=== PATIENT | female | born 1970 | race Caucasian/White ===

== ENCOUNTER 2020-03-08 13:50 | Inpatient (IN) ==
[2020-03-08] MEDS ORDERED: OPTIRAY 320 125ml IV PRN (14:01)
--- NOTE | 2020-03-08 14:03 | CT Scan Report ---
CT head/brain wo con CT DOSE: 614.27 mGy.cm HISTORY: Stroke Alert TECHNIQUE: Multiaxial CT images of the head were performed without the use of intravenous contrast. A dose lowering technique was utilized adhering to the principles of ALARA. Comparison: None. Findings: The paranasal sinuses and mastoid air cells are clear. The calvarium and skull base are int act. The ventricles and sulci are within normal limits. There is no mass, hematoma, midline shift, or acute infarct. Impression: No acute intracranial abnormality. ACT 112: Negative or not required by law. The above report was generated using voice recognition software. It may contain grammatical, syntax or spelling errors. Electronically signed by: Terrance Flood M.D. 03/08/2020 2:01 PM
--- NOTE | 2020-03-08 14:14 | Emergency Department Note ---
Impression & Plan Central retinal artery occlusion of right eye, Cerebrovascular accident, HTN (hypertension) ED Provider Note NAME: NATALIYA CONNOLLY AGE: 50 SEX: F : 1970 ARRIVES VIA: Walk-In INFORMANT: Patient ED PROVIDER(S): David Malik DO CHIEF COMPLAINT: Loss of vision in right eye HPI: Patient is a 50-year-old female who presents the ER for kaleidoscope vision in her right eye which started about 1 AM this morning. Patient notes that around 9 AM-10am patient completely lost vision in her right eye. She notes that she can see some faint white light in her peripheral vision of her right eye. She denies any headaches, chest pain, shortness of breath, nausea, vo miting or diarrhea. She notes that she went to the kiln cleaner office who noticed a right central artery occlusion. Patient was referred in here for further work-up. No other exacerbating or remitting factors. ROS: See above HPI for pertinent positives & negatives. A total of 10 systems reviewed and were otherwise negative. PAST MEDICAL HISTORY:See Below PAST SURGICAL HISTORY:See Below FAMILY HISTORY:See Below SOCIAL HISTORY:See Below HOME MEDICATIONS:See Below ALLERGIES:See Below VITALS:See Below PHYSICAL EXAMINATION: GENERAL: Sitting up in bed, alert, well appearing, well nourished, no distress, non-toxic EYE EXAM: normal conjunctiva. OROPHARYNX: no exudate, no erythema, lips, buccal mucosa, and tongue normal and mucous membranes are moist NECK: supple, no nuchal rigidity, no adenopathy, non-tender LUNGS: Clear to auscultation. Normal chest wall mechanics HEART: no murmurs, S1 normal and S2 normal ABDOMEN: abdomen soft, non-tender, normo-active bowel sounds, no masses, no re bound or guarding. BACK: Back is symmetrical on inspection and there is no deformity, no midline te nderness, no CVA tenderness. SKIN: no rashes and no bruising UPPER EXTREMITIES: upper extremities are grossly normal. LOWER EXTREMITIES: No pitting edema. NEURO EXAM: Normal sensorium, cranial nerves II-XII intact, normal speech, no weakness of arms, no weakness of legs. No drift. Finger to nose intact. Gross sensation intact. [id number] intact. MEDICAL DECISION MAKING: Patient is a 50-year-old female presents the ER for trouble with her vision which started around 1 AM. She notes that somewhere between 9 AM and 11 she completely lost her vision. She saw ophthalmology who noticed that she had a central retinal artery occlusion. She was referred in. Stroke alert was called in triage. I evaluated her and CT. Discussed with Bridgette tele-stroke neurolo gist who notes that she is out of the window. Recommended aspirin and admission for complete work-up. CT head as well as CT angios of the head and neck were negative. She has no other focal deficit. Labs show no significant leukocytosis or anemia. BMP with mild hypokalemia. LFTs bilirubin was unremarkable. Meagan Castañeda who was the kiln cleaner called in and noted that she should be checked for giant cell arteritis and recommended CRP and sed being added on. These labs were added on. Patient was already admitted to the hospitalist at this time. Patient has been updated at bedside as well. Triage Nursing notes reviewed. Prior medical records reviewed Vital Signs: reviewed and remarkable for hypertension Differential diagnosis: Differential Diagnosis includes but is not limited to ischemic Stroke, hemorrhagic stroke, bells palsy, mass, neoplasm, migraine headache, seizure, subarachnoid hemorrhage, TIA, and transient global amnesia. ER treatment provided: See below Diagnostics interpreted by me: ECG: Sinus rhythm rate of 87 Normal axis T WI in lead III No PVCs Normal QTC Cardiac Monitoring: An order was placed for continuous cardiac monitoring. The monitor shows a rate of 82 with sinus rhythm. Laboratory studies: As stated above and show below. Imaging studies: CT head as well as CT angios of the head and neck were negative Consultation(s): Discussed with Dr. Torin Lacy for admission ED COURSE: Procedures: none Critical Care: None Past Med/Surg History Social History Preferred Language: Danish Feels Safe at Home: Yes Smoking Status: Never smoker Allergies Allergies Allergy/AdvReac Type Severity Reaction Status Date / Time Anesthesia AdvReac Mild Vomiting Uncoded 03/08/20 14:47 Narcotics AdvReac Mild Vomiting Uncoded 03/08/20 14:47 Home Meds Home Medications Medication Instructions Recorded Confirmed acetaminophen [Tylenol] 325 mg PO QID PRN 03/08/20 03/08/20 esomeprazole magnesium [Nexium] 40 mg PO HS 03/08/20 03/08/20 ibuprofen [Advil] 200 mg PO Q6H PRN 03/08/20 03/08/20 tizanidine 0 mg PO HS 03/08/20 03/08/20 Results & Data (ED) Vital Signs Vital Signs - 24 hr 03/08/20 13:53 03/08/20 14:15 03/08/20 14:19 Temperature 37.0 C Temperature Source Oral Pulse Rate 91 H 86 85 Pulse Rate from SpO2 Sensor 87 84 Respiratory Rate 18 Respiratory Effort / Characteristics Non-Labored Respiratory Depth Normal Blood Pressure 133/98 185/109 H Blood Pressure Mean 109 142 Blood Pressure Position Sitting Pulse Oximetry 95 99 99 Oxygen Delivery Method Room Air Sepsis Recent Fever Within 48 Hours No Sepsis New/Unexplained Change in Mental Status No Sepsis Action Taken by Nursing No Action Required 03/08/20 14:20 03/08/20 14:22 03/08/20 14:25 Temperature Temperature Source Pulse Rate 93 H 91 H 80 Pulse Rate from SpO2 Sensor 93 H 88 82 Respiratory Rate Respiratory Effort / Characteristics Respiratory Depth Blood Pressure 186/101 H 194/112 H 185/138 H Blood Pressure Mean 126 135 143 Blood Pressure Position Pulse Oximetry 96 99 100 Oxygen Delivery Method Sepsis Recent Fever Within 48 Hours Sepsis New/Unexplained Change in Mental Status Sepsis Action Taken by Nursing 03/08/20 14:59 03/08/20 15:01 03/08/20 15:30 Temperature Temperature Source Pulse Rate 100 H 93 H 84 Pulse Rate from SpO2 Sensor 82 Respiratory Rate 22 17 14 Respiratory Effort / Characteristics Respiratory Depth Blood Pressure 158/104 H 176/91 H Blood Pressure Mean 132 110 Blood Pressure Position Pulse Oximetry 97 97 Oxygen Delivery Method Room Air Room Air Sepsis Recent Fever Within 48 Hours Sepsis New/Unexplained Change in Mental Status Sepsis Action Taken by Nursing Laboratory Data Result diagrams: 03/08/20 14:10 03/08/20 14:10 Lab Results 03/08/20 03/08/20 03/08/20 Range/Units 14:10 14:10 14:10 WBC 6.48 (4.8-10.8) K/uL RBC 4.28 (4.2-5.4) M/uL Hgb 13.4 (12.0-16.0) g/dL Hct 38.0 (37-47) % MCV 88.8 (80-100) fL MCH 31.3 (25-34) pg MCHC 35.3 (32-36) g/dL RDW Std Deviation 40.8 (36.4-46.3) fL RDW Coeff of Arnold 12.8 (11.5-14.5) % Plt Count 238 (130-400) K/uL MPV 9.2 (7.4-10.4) fL PT 11.0 (9.0-12.0) Seconds INR 1.0 (0.9-1.1) APTT 27.4 (21.0-31.0) Seconds PTT Ratio 1.0 Sodium 135 L (136-145) mmol/L Potassium 3.3 L (3.5-5.1) mmol/L Chloride 104 (98-107) mmol/L Carbon Dioxide 24 (21-32) mmol/L Anion Gap 7.0 (3-11) BUN 11 (7-18) mg/dl Creatinine 0.78 (0.6-1.2) mg/dl Est Cr Clr Drug Dosing 83.3 ml/min Est GFR ( Amer) 102.7 Est GFR (Non-Af Amer) 88.6 BUN/Creatinine Ratio 14.3 (10-20) Glucose 103 H (70-99) mg/dl POC Glucose (70-99) mg/dl Calcium 8.4 L (8.5-10.1) mg/dl Magnesium 1.9 (1.8-2.4) mg/dl Total Bilirubin 0.3 (0.2-1) mg/dl AST 19 (15-37) U/L ALT 24 (12-78) U/L Alkaline Phosphatase 81 (45-117) U/L Total Protein 6.7 (6.4-8.2) gm/dl Albumin 3.6 (3.4-5.0) gm/dl Globulin 3.1 (2.5-4.0) gm/dl Albumin/Globulin Ratio 1.2 (0.9-2) Specimen Hemolysis 03/08/20 Range/Units 14:24 WBC (4.8-10.8) K/uL RBC (4.2-5.4) M/uL Hgb (12.0-16.0) g/dL Hct (37-47) % MCV (80-100) fL MCH (25-34) pg MCHC (32-36) g/dL RDW Std Deviation (36.4-46.3) fL RDW Coeff of Arnold (11.5-14.5) % Plt Count (130-400) K/uL MPV (7.4-10.4) fL PT (9.0-12.0) Seconds INR (0.9-1.1) APTT (21.0-31.0) Seconds PTT Ratio Sodium (136-145) mmol/L Potassium (3.5-5.1) mmol/L Chloride (98-107) mmol/L Carbon Dioxide (21-32) mmol/L Anion Gap (3-11) BUN (7-18) mg/dl Creatinine (0.6-1.2) mg/dl Est Cr Clr Drug Dosing ml/min Est GFR ( Amer) Est GFR (Non-Af Amer) BUN/Creatinine Ratio (10-20) Glucose (70-99) mg/dl POC Glucose 96 (70-99) mg/dl Calcium (8.5-10.1) mg/dl Magnesium (1.8-2.4) mg/dl Total Bilirubin (0.2-1) mg/dl AST (15-37) U/L ALT (12-78) U/L Alkaline Phosphatase (45-117) U/L Total Protein (6.4-8.2) gm/dl Albumin (3.4-5.0) gm/dl Globulin (2.5-4.0) gm/dl Albumin/Globulin Ratio (0.9-2) Specimen Hemolysis Administered Medications Ioversol (Optiray 320 125ml) 116 ml IV ONCE PRN PRN Reason: Interaction Checking Stop: 03/12/20 14:00 Last Admin: 03/08/20 14:01 Dose: 116 ml Documented by: [id number] Discontinued Medications Aspirin (Aspirin) 324 mg PO NOW STA Stop: 03/08/20 14:57 Last Admin: 03/08/20 15:00 Dose: 324 mg Documented by: [id number] Discharge Plan Visit Data Chief Complaint: Stroke/CVA Symptoms Stated Complaint: VISION LOST IN R EYE ED Provider: David Malik Discharge Problem: Central retinal artery occlusion of right eye, Cerebrovascular accident, HTN (hypertension) Forms Stand Alone Forms: [facility] Prescriptions Prescriptions: No Action acetaminophen [Tylenol] 325 mg Tablet 325 mg PO QID PRN (Reason: Pain) RF: 0 tizanidine 2 mg Tablet 0 mg PO HS RF: 0 esomeprazole magnesium [Nexium] 40 mg Capsule,Delayed Release(Dr/Ec) 40 mg PO HS RF: 0 ibuprofen [Advil] 200 mg Tablet 200 mg PO Q6H PRN (Reason: Pain) RF: 0
[2020-03-08 14:22] LABS: Hemoglobin 13.4 g/dL (12.0-16.0); Mean Corpuscular Hemoglobin 31.3 pg (25-34); Mean Corpuscular Hgb Conc 35.3 g/dL (32-36); Mean Corpuscular Volume 88.8 fL (80-100); Mean Platelet Volume 9.2 fL (7.4-10.4); Platelet Count 238 K/uL (130-400); RDW Coefficient of Variation 12.8 % (11.5-14.5); RDW Standard Deviation 40.8 fL (36.4-46.3); Red Blood Count 4.28 M/uL (4.2-5.4); White Blood Count 6.48 K/uL (4.8-10.8)
--- NOTE | 2020-03-08 14:23 | CT Scan Report ---
CT ANGIOGRAPHY OF THE NECK WITH CONTRAST CLINICAL HISTORY: Retinal artery occlusion. COMPARISON STUDY: No previous studies for comparison. Technique: CT angiography of the carotid and vertebral arteries was obtained using SpaceClaim 320 IV and 3D reconstruction on an independent workstation. NASCET criteria was utilized. Automated exposure c ontrol was utilized for the study. A dose lowering technique was utilized adhering to the principles of ALARA. Findings: Lung apices are clear. There is no cervical lymphadenopathy. There is no cervical spine fra cture. The bilateral common carotid, cervical internal carotid and vertebral arteries are patent. The re is no dissection or stenosis within these vessels. No plaque is identified within the major vessel s of the neck. No aneurysms are noted. CTA of the head will be reported separately. IMPRESSION: Normal CTA of the neck. ACT 112: Negative or not required by law. Electronically signed by: Jeremiah Bruce M.D. 03/08/2020 2:22 PM
--- NOTE | 2020-03-08 14:23 | CT Scan Report ---
CT angio head w con CLINICAL HISTORY: Retinal artery occlusion TECHNIQUE: CT angiography of the head was performed in a dynamic helical fashion during intravenous a dministration of 116 cc of Optiray 320. MIP imaging was performed. A dose lowering technique was util ized adhering to the principles of ALARA. CT DOSE: 517.51 mGy.cm COMPARISON STUDY: No previous studies for comparison. FINDINGS: There are no lesion suspicious for aneurysm. There are no major intracranial branch occlusi ons. The dural venous sinuses appear patent. There is mild sinus disease. IMPRESSION: 1. Unremarkable CT angiography of the brain ACT 112: Negative or not required by law. Electronically signed by: Hesham Angulo M.D. 03/08/2020 2:22 PM
--- NOTE | 2020-03-08 14:25 | XRay Report ---
XR chest 1V portable CLINICAL HISTORY: stroke alert COMPARISON STUDY: No previous studies for comparison. FINDINGS: Lung volumes are normal. Lungs are clear. There is no pneumothorax or pleural effusion. Car diac size is normal. Lower mediastinal contour abnormality may reflect a hiatal hernia. There is no e vidence for pulmonary edema. Incidental note is made of an old, healed left clavicular fracture. IMPRESSION: 1. No acute findings. 2. Lower mediastinal contour abnormality which may reflect a hiatal hernia. ACT 112: Negative or not required by law. Electronically signed by: Jeremiah Bruce M.D. 03/08/2020 2:23 PM
[2020-03-08 14:41] LABS: Partial Thromboplastin Time 27.4 Seconds (21.0-31.0)
[2020-03-08 14:42] LABS: Albumin Level 3.6 gm/dl (3.4-5.0); BUN Creatinine Ratio 14.3 (10-20); Calcium 8.4 mg/dl (8.5-10.1); Creatinine Clr Calc Pharmacy 83.3 ml/min; Est GFR (African American) 102.7; Est GFR (Non-African American) 88.6; Magnesium 1.9 mg/dl (1.8-2.4); Potassium 3.3 mmol/L (3.5-5.1)
[2020-03-08 14:45] LABS: Albumin Globulin Ratio 1.2 (0.9-2); Bilirubin,Total 0.3 mg/dl (0.2-1); Globulin 3.1 gm/dl (2.5-4.0); Total Protein 6.7 gm/dl (6.4-8.2)
[2020-03-08] MEDS ORDERED: ASPIRIN CHEW 324 MG PO STA (14:56)
[2020-03-08] MEDS ORDERED: ALUMINUM/MAGNESIUM SUSP 30 ML UDC PO STA (17:10)
--- NOTE | 2020-03-08 17:10 | Electrocardiogram Report ---
Test Reason : Blood Pressure : / mmHG Vent. Rate : 087 BPM Atrial Rate : 087 BPM P-R Int : 130 ms QRS Dur : 088 ms QT Int : 390 ms P-R-T Axes : 030 020 008 degrees QTc Int : 469 ms Normal sinus rhythm Normal ECG No previous ECGs available Confirmed by Jose Rapp ([id number]) on 03/08/2020 5:10:01 PM Referred By: REFERRED SELF Confirmed By:Jose Rapp
[2020-03-08] MEDS ORDERED: ONDANSETRON INJ 2 MG/ML 2 ML VIAL IV STA (17:11)
--- NOTE | 2020-03-08 17:12 | History & Physical Report ---
Date of Service March 08, 2020 Assessment & Plan (1) Central retinal artery occlusion of right eye: Admit to PCU/telemetry ESR/CRP negative for GCA Hypercoagulable workup as per Dr Castañeda's suggestion in AM, also discussed with Dr Manning TTE CTA head/neck without significant stenosis CT head - no acute intracranial abnormality MR Brain w/o contrast pending Stop ibuprofen use Consult neurology - discussed with Dr Manning over the phone and agreed with ASA and statin. Discussed IV acetazolamide but given no headache will defer at this time. (2) Dyslipidemia: Noted history of this by patient Repeat Lipids in AM (3) GERD (gastroesophageal reflux disease): Switch nexium for pantoprazole as per hospital formulary (4) DVT prophylaxis: SCDs Low risk of DVT given mobility and likely short stay in hospital therefore will defer chemical prophylaxis at this time Admission and Anticipated Discharge Date Admission Date: 03/08/2020 History of Present Illness Chief Complaint: Right sided vision loss Primary Care Provider: Eduard Meek Mee Angulo is a 50 year old non-smoker who presents to the ER after ophthalmology visit for acute, non-painful right sided vision loss. She has had 2 other episodes of Kaleidoscope vision and one of vision loss last a few hours each time in the last month. No extremity weakness or change in sensation. No associated headache, hearing, speech changes. No facial droop. On this occasion she noted Kaleidoscope vision around 12:30 am in the early hours of the morning. She went to bed and woke up with the same vision. She first noticed complete vision loss at around 9am this morning. She called her cousin Dr Castañeda (punch out crew member) and was seen earlier today and noted right sided central retinal artery occlusion on exam so was sent to the ER. She notes her blood pressure was taken in December and was normal at this time. She has had significant second hand smoke exposure. She reports previously elevated cholesterol levels and she should probably be on a statin. Per ophthalmology note today. Right eye +3 APD, VF defect in all quadrants. Slit lamp: mildly narrow anterior chamber, edema around optic nerve. 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 Awaiting pain management appointment Allergies Allergy/AdvReac Type Severity Reaction Status Date / Time Anesthesia AdvReac Mild Vomiting Uncoded 03/08/20 14:47 Narcotics AdvReac Mild Vomiting Uncoded 03/08/20 14:47 Home Medications Home Medications Medication Instructions Recorded Confirmed Type acetaminophen [Tylenol] 325 mg PO QID PRN 03/08/20 03/08/20 History esomeprazole magnesium [Nexium] 40 mg PO HS 03/08/20 03/08/20 History ibuprofen [Advil] 200 mg PO Q6H PRN 03/08/20 03/08/20 History tizanidine 0 mg PO HS 03/08/20 03/08/20 History Past Med/Surg History Medical History Chronic neck pain Gastroesophageal reflux disease Surgical History Previous section S/P wisdom tooth extraction Family History Father , age 77 of lung cancer Lung cancer Dementia Mother Dementia Social History Preferred Language: Maltese Communication Ability: Effective Beliefs That Will Affect Care: None Current Living Situation: Spouse and Family current occupational status: unemployed Other Information That Helps Us Care for You: No other: Former training officer for a [employer] Feels Safe at Home: Yes Safety Concerns: Feels Safe At This Time Smoking Status: Never smoker Do You Dip or Chew Tobacco: No ; Second Hand Exposure: Yes (parents) ; Tobacco Cessation Education Requested by Patient: No Hx Alcohol Use: Yes Alcohol type: beer and hard liquor Alcohol Intake Frequency Comment: Two per month Hx Substance Use: No Review of Systems Review of Systems: All systems reviewed & are unremarkable except as noted in HPI & below Physical Exam Constitutional: WD/WN, vitals as above Eyes: EOM intact bilaterally; + abnormal visual field confrontation (light and movement detected only in right eye), + no PERRL (right pupil mydriasis with RAPD) and no nystagmus ENMT: external ear and nose normal, oropharynx normal Neck: trachea midline, no thyromegaly Respiratory: normal respiratory effort, lungs clear to auscultation Cardiovascular: RRR, no murmur, no edema Gastrointestinal (Abdomen): normal bowel sounds, soft, nontender, no hepatosplenomegaly Musculoskeletal: no cyanosis or clubbing, extremities motor strength 5/5 Skin: no rashes, warm and dry Neurologic: moves all extremities and awake; no focal motor deficits and not confused Speech / Cognition: + abnormal speech Motor/Sensory: no tremor, no pronator drift and no sensory deficit Psychiatric: A+Ox3, euthymic affect Lymphatic: no cervical or axillary lymphadenopathy Results & Data Results & Data ([facility]) Vital Signs (Past 12 Hours) Vital Signs Temp Pulse Resp BP Pulse Ox 03/08/20 15:30 84 14 176/91 H 97 03/08/20 15:01 93 H 17 03/08/20 14:59 100 H 22 158/104 H 97 03/08/20 14:25 80 185/138 H 100 03/08/20 14:22 91 H 194/112 H 99 03/08/20 14:20 93 H 186/101 H 96 03/08/20 14:19 85 99 03/08/20 14:15 86 185/109 H 99 03/08/20 13:53 37.0 C 91 H 18 133/[address] head/brain wo con Impression: No acute intracranial abnormality. CT angio head w con IMPRESSION: 1. Unremarkable CT angiography of the brain CT ANGIOGRAPHY OF THE NECK WITH CONTRAST IMPRESSION: Normal CTA of the neck. ECG Indication: other (CRAO) Rate (beats per minute): 87 Rhythm: normal sinus Findings: no acute ischemic change Comparison ECG Date: no prior available Code Status & VTE Plan Code Status Full VTE Prophylaxis Plan VTE Prophylaxis will be ordered: Yes Reason for no VTE drug order: Treatment not indicated PG Care Time/CCT Total # of Minutes Spent Total Time Spent with Patient: Total time spent is greater than 50% in coordination of care (as documented) at patient's floor/unit and/or counseling patient: Coding Level of Care Code 43681 Initial Inpt Care Lvl 3 Diagnoses Central retinal artery occlusion of right eye H34.11 Dyslipidemia E78.5 GERD (gastroesophageal reflux disease) K21.9 DVT prophylaxis Z29.9
[2020-03-08] MEDS ORDERED: PHARMACIST DISCHARGE MED REC CONSULT PRN (18:03)
[2020-03-08] MEDS: ACETAMINOPHEN 325 MG TAB PO PRN (18:50)
--- NOTE | 2020-03-08 20:47 | Magnetic Resonance Report ---
MR brain wo con HISTORY: Mental status change right central retinal artery occlusion TECHNIQUE: Multiplanar multisequence MRI of the brain was performed without the use of contrast. COMPARISON STUDY: None. FINDINGS: Diffusion images show no evidence for an acute ischemic event. There are several foci of increased signal within the periventricular deep white matter regions. This may be consistent with that of chronic small vessel process, with a demyelinating disorder isn't pos sible to completely exclude although perhaps it is less likely given the distribution of findings. The ventricular system is midline. Internal auditory canals are symmetric. IMPRESSION: 1. No evidence for an acute ischemic event. 2. Multiple small foci of increased signal within the periventricular deep white matter and cerebral hemispheric regions. 3. This is most consistent with that of chronic small vessel change, with a demyelinating disorder im possible to completely exclude ACT 112: Negative or not required by law. The above report was generated using voice recognition software. It may contain grammatical, syntax or spelling errors. Electronically signed by: Terrance Flood M.D. 03/08/2020 8:45 PM
[2020-03-08] MEDS: ONDANSETRON INJ 2 MG/ML 2 ML VIAL IV PRN (20:52)
[2020-03-08] MEDS ORDERED: ATORVASTATIN 40 MG TAB PO SCH (21:00)
[2020-03-08] MEDS ORDERED: PANTOprazole 40 MG TAB PO SCH (21:00)
[2020-03-09 06:56] LABS: Basophils # (auto) 0.03 K/uL (0-0.2); Basophils % (auto) 0.4 %; Eosinophils # (auto) 0.12 K/uL (0-0.5); Eosinophils % (auto) 1.6 %; Hematocrit (blood only) 41.2 % (37-47); Hemoglobin 14.3 g/dL (12.0-16.0); Immature Granulocytes # (auto) 0.01 K/uL (0.00-0.02); Immature Granulocytes % (auto) 0.1 %; Lymphocytes # (auto) 2.35 K/uL (1.2-3.4); Lymphocytes % (auto) 31.4 %; Mean Corpuscular Hemoglobin 31.2 pg (25-34); Mean Corpuscular Hgb Conc 34.7 g/dL (32-36); Mean Platelet Volume 9.4 fL (7.4-10.4); Monocytes # (auto) 0.56 K/uL (0.11-0.59); Monocytes % (auto) 7.5 %; Neutrophils # (auto) 4.42 K/uL (1.4-6.5); Platelet Count 256 K/uL (130-400); RDW Standard Deviation 42.3 fL (36.4-46.3); Red Blood Count 4.58 M/uL (4.2-5.4); White Blood Count 7.49 K/uL (4.8-10.8)
[2020-03-09 07:26] LABS: BUN Creatinine Ratio 9.4 (10-20); Creatinine Clr Calc Pharmacy 71.5 ml/min; Est GFR (African American) 86.4; Est GFR (Non-African American) 74.6; Potassium 3.5 mmol/L (3.5-5.1)
[2020-03-09] MEDS ORDERED: ATORVASTATIN 40 MG TAB PO STA (07:39)
[2020-03-09 08:54] LABS: Estimated Average Glucose 131 mg/dl; Hemoglobin A1C 6.2 % (4.5-5.6)
[2020-03-09] MEDS ORDERED: ASPIRIN 81 MG ECTAB PO SCH (09:00)
[2020-03-09] MEDS: ACETAMINOPHEN 325 MG TAB PO PRN (09:37)
[2020-03-09] MEDS: ONDANSETRON INJ 2 MG/ML 2 ML VIAL IV PRN (09:38)
[2020-03-09] MEDS ORDERED: lisinopriL 10 MG TAB PO SCH (09:45)
--- NOTE | 2020-03-09 10:18 | Neurology Consultation ---
Date of Consultation March 09, 2020 Assessment & Plan (1) Decreased vision of right eye: (2) Central retinal artery occlusion of right eye: (3) Hypertension: (4) Dyslipidemia: Patient is now greater than 24 hours post acute right vision loss and diagnosis of a right central retinal artery occlusion by Ophthalmology yesterday afternoon. She has made no improvements in her vision from yesterday as far she is aware. This is painless and pupil sparing and there are no other neurologic deficits on exam . There is no meningeal signs or encephalopathy. Unfortunately, there is no specific treatment that is standardized for the treatment of subtle retinal artery occlusion. General anticoagulation is not helpful. She was out of the window of tPA when she arrived to the emergency room (at although this is not a standard treatment for this condition their our Centers for undergoing trials with this. I do not believe that an ophthalmologic procedure is needed as there is no evidence of increased intracranial or intra-ocular pressure. The etiology of this is likely small vessel ischemic disease. Her MRI of the brain has evidence of small-vessel ischemic disease diffusely. Risk factors would be hypertension and dyslipidemia. There is no evidence for inflammatory disease with a normal sed rate and CRP. CT angiography of the head and neck were unremarkable. Nevertheless other conditions that create increased clotting need to be considered, such as antiphospholipid antibody syndrome. Recommendations: 1. Obtain VAN 12 panel and clotting panel. 2. Continue 81 milligram aspirin tablet further small vessel ischemic disease. I see no indication for anticoagulation. 3. Control blood pressure as you are doing , aiming for a mean arterial pressure of 95-100. 4. This patient would be a high dose statin candidate. 5. After discharge with need to follow up with Ophthalmology. 6. Echocardiogram is pending. Overall I spent a total of 110 minutes with this case including review of records, review of MRI films (with the patient also), direct evaluation patient bedside, and discussed the case with the patient at bedside, , and Dr. Escalona, including differential diagnosis and treatment options. History of Present Illness Reason for Consultation: 50-year-old, who I was asked to see the request of Dr. pillai, for neurologic consultation regarding the right eye vision loss and central artery occlusion. Requesting Physician: Dr. Lacy Attending Physician: David Escalona, DO History of Present Illness Patient does not have much in the way of past medical problems that she is aware. In the past, she has been told that her blood pressure or cholesterol has been high but she has not been regularly treated for this. She does remember her blood pressure being high around the time of her delivery of her child 9 years ago. Approximately 6 weeks ago she was sitting in the evening watching TV when she had the sudden onset of blurry and blotchy vision in the right eye. It was not present in the left eye. There was no pain or headache before, during, or after the episode. She likened the visual change to a "kaleidoscope" in that patterns and patches of blurry and clear were moving and changing. She may have had a l ittle bit of flashing light off to the side at times. The whole episode lasted about 2 hours then faded away and was resolved. Two days later, in the evening, the same exact episode happened for the same duration of time. Three weeks later, about 2 weeks ago, she had a 3rd episode in the evening exactly like the 1st 2. On March 07 she had a typical day and was up in the evening watching TV. Around 29March 08 she noted the kaleidoscopic vision again in the right eye exactly like the other episodes. She went to bed and when she woke up at 0630 she had the same kaleidoscopic vision problem. She then took a nap from 0730 to 1030 and when she woke up she could not see out of the right eye. It was dark although there was some ability to see some light/objects vaguely to the right in the right eye. She went to see Dr. Castañeda , desulphurizer operator, who sent her to the ER. He diagnosed a right central artery occlusion. She arrived at the emergency room at 1353, with temperature 37.0, pulse 91, respiratory rate 18, blood pressure 133/98 and O2 saturation 95 percent. She had no vision in the right eye but the rest of her exam was unremarkable. CBC was unremarkable. Chem profile was normal except for sodium 135, glucose of 103, potassium 3.3. ESR was 7 and CRP was negative. CT scan of the head was unremarkable. CT angiography of the head and neck were unremarkable as well. MRI of the brain showed no acute stroke or orbital problem although there were a mild amount of distinct small scattered diffuse white matter spots representing old small vessel ischemia. I reviewed this film with the patient at bedside as well. Patient's vision is the same today as yesterday. CBC and Chem profile were unremarkable. Blood pressure was 152/84, hemoglobin A1c was 6.2, triglycerides 301 and total cholesterol 322 Allergies Allergy/AdvReac Type Severity Reaction Status Date / Time Anesthesia AdvReac Mild Vomiting Uncoded 03/08/20 14:47 Narcotics AdvReac Mild Vomiting Uncoded 03/08/20 14:47 Home Medications Home Medications Medication Instructions Recorded Confirmed Type acetaminophen [Tylenol] 325 mg PO QID PRN 03/08/20 03/08/20 History esomeprazole magnesium [Nexium] 40 mg PO HS 03/08/20 03/08/20 History ibuprofen [Advil] 200 mg PO Q6H PRN 03/08/20 03/08/20 History tizanidine 0 mg PO HS 03/08/20 03/08/20 History Patient History Medical History Chronic neck pain Gastroesophageal reflux disease Surgical History Previous section S/P wisdom tooth extraction Family History Father , age 77 of lung cancer Lung cancer Dementia Mother Dementia Social History Preferred Language: Thai Beliefs That Will Affect Care: None Current Living Situation: Spouse and Family current occupational status: unemployed Other Information That Helps Us Care for You: No other: 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 Feels Safe at Home: Yes Safety Concerns: Feels Safe At This Time Smoking Status: Never smoker Do You Dip or Chew Tobacco: No ; Second Hand Exposure: Yes (parents) ; Tobacco Cessation Education Requested by Patient: No Hx Alcohol Use: Yes Alcohol type: beer and hard liquor Alcohol Intake Frequency Comment: Two per month Hx Substance Use: No Review of Systems Constitutional: no fever, no fatigue and no weakness Eyes: + worsening vision (Decreased vision right eye); no diplopia and no eye pain Ear, Nose, Mouth, Throat: no ear pain, no tinnitus, no hearing loss, no dizziness, no hoarseness and no dysphagia Respiratory: no cough and no dyspnea Cardiovascular: no chest pain, no palpitations and no lightheadedness Gastrointestinal: no abdominal pain, no nausea and no vomiting Genitourinary: no dysuria, no urinary frequency and no urinary incontinence Musculoskeletal: + neck pain; no back pain, no radicular pain, no joint pain and no myalgia Integumentary: no rash and no lesions Neurologic: no gait abnormality, no localized weakness, no generalized weakness, no tingling, no numbness, no tremor(s), no abnormal movements, no headache(s), no abnormal speech, no confusion and no memory loss Psychiatric: no depression, no irritability, no anxiety, no difficulty concentrating, no confusion and no hallucinations Endocrine: no fatigue and no flushing Hematologic / Lymphatic: no easy bleeding and no easy bruising Allergy / Immunological: no urticaria and no problem reported Exam (Neuro) Physical Exam: The patient is right-handed. The patient is awake, alert, and attentive. Speech is normal without any aphasia or dysarthria. She can name objects, repeat phrases, and has normal spontaneous speech. Mentation and thought processes are intact, with orientation to person, place and time, and normal fund of knowledge. Attention and concentration are normal. Mood and affect are normal and appropriate. General appearance and grooming are normal. Short and long-term memory are intact. The discs are sharp with positive venous pulsations bilaterally. There are no obvious exudates, hemorrhages, or blood vessel changes seen with my ophthalmoscope. Pupils are 3 mm bilaterally and reactive to light. Extraocular eye muscles are intact without nystagmus. Visual acuity and visual soolrio seem normal on the left. On the right, she sees some object outline and colors peripherally on the right. There are no deficits to sensation in the face in all 3 distributions of the fifth cranial nerve bilaterally. Corneal reflexes are positive bilaterally. Facial strength and symmetry was normal bilaterally. Hearing seems normal to whisper and finger rub bilaterally. Palate moves well without asymmetry. There is normal sternocleidomastoid and trapezius (shoulder shrug) strength bilaterally. Tongue is midline with good strength bilaterally. Neck has a full range of motion without discomfort. There are no cervical bruits bilaterally. There are no cranial or ocular bruits. Heart is without murmur. There is a regular rhythm and rate. Cervical, thoracic, and lumbar spine are nontender to palpation. Gait is narrow based, with good arm swing, turns, and stance. With outstretched arms there is no drift. There are no resting, postural, or action tremors. There is no ataxia with finger to nose testing. There is good facility in the hands. No other abnormal involuntary movements are noted. Motor strength is 5/5 diffusely in the arms bilaterally including deltoids, biceps, triceps, brachioradialis, wrist flexors and extensors, office assistant receptionist, and intrinsic hand muscles. Motor strength is 5/5 diffusely in the legs bilaterally including hip flexors, quadriceps, hamstrings, gastrocnemius, tibialis anterior, tibialis posterior, and Peroneii muscles. Toe extensors are normal and there is good bulk in the extensor digitorum brevis muscles bilaterally. The limbs have good tone without rigidity or spasticity. There is no atrophy noted in the muscles. Muscle bulk is normal, there is no tenderness to palp ation, no myotonia to percussion, and no fasciculations seen. Sensory examination is intact to touch and pin throughout all 4 limbs diffusely. Vibratory and position sense testing is normal bilaterally as well. There is normal sensation to temperature. Reflexes are 2/4 in the biceps, triceps, brachioradialis, quadriceps, and Achilles tendons bilaterally. There is no clonus bilaterally. Toes are downgoing with plantar stimulation bilaterally. Peripheral pulses are present and of normal quality distally in all 4 limbs. There is no peripheral edema noted in the limbs. Results & Data ([facility]) Vital Signs (Past 12 Hours) Vital Signs Temp Pulse Pulse Resp BP Pulse Ox 03/09/20 07:23 36.9 C 64 18 152/84 H 98 03/09/20 03:35 36.8 C 61 18 154/97 H 97 03/08/20 23:55 36.7 C 63 16 129/84 96 03/08/20 23:01 67 PG Care Time/CCT Total # of Minutes Spent Total Time Spent with Patient: Total time spent is greater than 50% in coordination of care (as documented) at patient's floor/unit and/or counseling patient: Coding Level of Care Code 19815 Inpt Consult Level 5 Diagnoses Decreased vision of right eye H54.61 Central retinal artery occlusion of right eye H34.11 Hypertension I10 Dyslipidemia E78.5 Time Spent (min) 110
--- NOTE | 2020-03-09 11:14 | Family Medicine Progress Note ---
Date of Service March 09, 2020 Assessment & Plan Admission and Anticipated Discharge Date Admission Date: March 08, 2020 Results & Data ([facility]) Vital Signs (Past 12 Hours) Vital Signs Temp Pulse Pulse Resp BP Pulse Ox 03/09/20 08:00 69 03/09/20 07:23 36.9 C 64 18 152/84 H 98 03/09/20 03:35 36.8 C 61 18 154/97 H 97 03/08/20 23:55 36.7 C 63 16 129/84 96
--- NOTE | 2020-03-09 12:42 | Discharge Summary ---
Date of Service March 09, 2020 Admission HPI Per Admitting Provider Mee Angulo is a 50 year old non-smoker who presents to the ER after ophthalmology visit for acute, non-painful right sided vision loss. She has had 2 other episodes of Kaleidoscope vision and one of vision loss last a few hours each time in the last month. No extremity weakness or change in sensation. No associated headache, hearing, speech changes. No facial droop. On this occasion she noted Kaleidoscope vision around 12:30 am in the early hours of the morning. She went to bed and woke up with the same vision. She first noticed complete vision loss at around 9am this morning. She called her cousin Dr Castañeda (ophth almologist) and was seen earlier today and noted right sided central retinal artery occlusion on exam so was sent to the ER. She notes her blood pressure was taken in December and was normal at this time. She has had significant second hand smoke exposure. She reports previously elevated cholesterol levels and she should probably be on a statin. Per ophthalmology note today. Right eye +3 APD, VF defect in all quadrants. Slit lamp: mildly narrow anterior chamber, edema around optic nerve. 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 Awaiting pain management appointment Admission Exam Per Admitting Provider Constitutional: WD/WN, vitals as above Eyes: EOM intact bilaterally; + abnormal visual field confrontation (light and movement detected only in right eye), + no PERRL (right pupil mydriasis with RAPD) and no nystagmus ENMT: external ear and nose normal, oropharynx normal Neck: trachea midline, no thyromegaly Respiratory: normal respiratory effort, lungs clear to auscultation Cardiovascular: RRR, no murmur, no edema Gastrointestinal (Abdomen): normal bowel sounds, soft, nontender, no hepatosplenomegaly Musculoskeletal: no cyanosis or clubbing, extremities motor strength 5/5 Skin: no rashes, warm and dry Neurologic: moves all extremities and awake; no focal motor deficits and not confused Speech / Cognition: + abnormal speech Motor/Sensory: no tremor, no pronator drift and no sensory deficit Psychiatric: A+Ox3, euthymic affect Lymphatic: no cervical or axillary lymphadenopathy Principal Diagnosis R sided central retinal artery occlusion Discharge Exam Constitutional WD/WN, vitals as above Respiratory normal respiratory effort, lungs clear to auscultation Cardiovascular RRR, no murmur, no edema Gastrointestinal (Abdomen) normal bowel sounds, soft, nontender, no hepatosplenomegaly Skin no rashes, warm and dry Neurologic R handed. AAOx3, normal speech. PERRLA, EOMI, no nystagmus. Normal visual acuity on L side. On R side has some lateral visual acuity (shadow) but can sometimes name the color of objects. Bilateral UE, LE, and face without sensory or motor deficits. DTRs normal. II- XII intact bilaterally. No pronator drift No tremor. No ataxia. Psychiatric A+Ox3, euthymic affect Discharge Data Allergies Allergy/AdvReac Type Severity Reaction Status Date / Time Anesthesia AdvReac Mild Vomiting Uncoded 03/08/20 14:47 Narcotics AdvReac Mild Vomiting Uncoded 03/08/20 14:47 Consultations 03/08/20 14:55 ED Decision to Admit Stat 03/08/20 18:03 Consult Case Management - Discharge Planning Routine Consult Neurology Routine Ordered Studies 03/08/20 13:52 CT head/brain wo con Stat 03/08/20 13:57 CT angio head w con Stat CT angio neck with con Stat 03/08/20 18:30 MR brain wo con Routine Hospital Course (1) Central retinal artery occlusion of right eye: 50 yo M PMHx GERD admitted for loss of vision in her R eye due to a R sided central retinal artery occlusion. Central retinal artery occlusion of right eye: - Seen by Ophthalmology emergently in outpatient setting yesterday: no increase IOP either eye; Right eye +3 APD, VF defect in all quadrants. Slit lamp: mildly narrow anterior chamber, edema around optic nerve. Macule with marcus red spot with retinal blanching, vessels with superior temporal arcade possible emboli, vessels thinned out - ESR/CRP within normal limits, unlikely to be vasculitis. - TTE ordered: normal EF, no valvular abnormalities. - CTA head/neck without significant stenosis - CT head - no acute intracranial abnormality - MR Brain w/o contrast: diffuse small vessel ischemic disease - Lipid profile with TG 301, Total Cholesterol 322, LDL 219, HDL 43. - Have started atorvastatin 80mg daily. May require Zetia in outpatient setting if cholesterol does not reach goal with monotherapy. - It is possible that these significantly increased levels have a genetic element. - Hgb A1c 6.2%; prediabetic. Educated on dietary modification to prevent progression to diabetes. - Patient with significant HTN this admission (highest 190s/110s). Have started patient on lisinopril 10mg daily with decrease in BP to 140s/80s. - Have started asa 81mg for antiplatelet effect. - Expect that this patient's retinal artery occlusion is multifactorial in nature, with significantly elevated BP and cholesterol levels contributing to her disease. - Hypercoagulability workup ordered, including VAN 12 Screen, Factor V Leiden, prothrombin, homocysteine, Proteins C and S, Antithrombin III, Cardiolipin Ab, B2 glycoprotein Ab, Lupus anticoagulant. - Pt will have follow up with Neurology in 2-3 weeks, and with Ophthalmology following discharge. GERD (gastroesophageal reflux disease): - Continue home Nexium. Dispo: home with self-care. Follow up with Neuro and Ophtho (2) Decreased vision of right eye: (3) Hypertension: (4) Dyslipidemia: (5) GERD (gastroesophageal reflux disease): Total Time Total Time Spent Total Time Spent (In Minutes): >30 Discharge Plan Discharge Items Patient Disposition: Home - Self-Care Reason For Visit: CENTRAL RETINAL ARTERY OCCLUSION Discharge Diagnosis: central retinal artery occlusion Activity: Per Instructions section Non-emergency contact: Primary Care Provider and Neurologist Call non-emergency contact if: you have any medication questions and your symptoms worsen Follow-up/Referrals: Ronald Manning MD [Physician] - (follow up in 2-3 weeks) Eduard Meek [Primary Care Provider] - Diet: Heart Healthy Addtl Attending Provider Instructions: You were admitted to the hospital because you could not see out of your right eye. We did some imaging which showed that you had a clot in the artery that helps your eye see. While you were here we started to do some labwork that will look or genetic causes of clotting disorders. We did an ultrasound of your heart which was normal. These labs will take about a week to come back, and you will talk about your results with Dr. Manning at your follow up appointment in 2-3 weeks. We also checked your sugar and cholesterol, and found that your cholesterol levels were very high. It is likely that while diet plays a role in cholesterol, that some element of your cholesterol is genetic in nature. We started you on a medication called Lipitor to help decrease your cholesterol, which will help prevent further clots in vessels from happening. Your sugar was mildly elevated, which suggests that you need to make some dietary changes to prevent diabetes. You will find attached some guidelines for healthy diet. It is also important to get a good amount of exercise, 30 minutes a day is a goal you should set for yourself. Lastly, your blood pressure was very high several times while you were here. It is possible that both the blood pressure and cholesterol are the cause of your clot. We have started you on a medication called lisinopril here today to help decrease your blood pressure to help decrease your risk of clots moving forward. Lastly, we have started you on a baby aspirin in order to help thin the blood. All of these medications help decrease your risk of further clots in different ways, but they are all important together in order to help decrease your risk. Please find below your new medications: 1) lisinopril 10mg, 1 pill once daily. 2) atorvastatin (Lipitor) 80mg, 1 pill once daily. 3) baby aspirin 81mg, 1 pill once daily. 4) Please call Dr. Manning's office at the above number for an appointment if you are not contacted by Wednesday. 5) You will also need to have close follow up with Ophthalmology following miah tipton. 6) Please follow up with your primary care doctor within a week to go over your new medications and discuss next steps. These prescriptions have been sent to [facility] on [address] [facility] in [place], [place]. Pending Studies at Discharge: Yes Studies:: Hypercoagulability workup Stand-Alone Forms: Medications to Prevent Stroke, My [facility] [employer], Smoking Cessation Medications and DC Order Prescriptions: New atorvastatin 40 mg Tablet 80 mg PO QPM Qty: 30 RF: 0 lisinopril 10 mg Tablet 10 mg PO QAM Qty: 30 RF: 0 aspirin 81 mg Tablet,Delayed Release (Dr/Ec) 81 mg PO QAM Qty: 30 RF: 0 Continued acetaminophen [Tylenol] 325 mg Tablet 325 mg PO QID PRN (Reason: Pain) RF: 0 tizanidine 2 mg Tablet 0 mg PO HS RF: 0 esomeprazole magnesium [Nexium] 40 mg Capsule,Delayed Release(Dr/Ec) 40 mg PO HS RF: 0 ibuprofen [Advil] 200 mg Tablet 200 mg PO Q6H PRN (Reason: Pain) RF: 0 Discharge Orders: Discharge Order (Routine); Ordered 03/09/20 Ordered By: David Barton/Other Patient Handouts: Cholesterol Control, Food and Cholesterol, Cholesterol Lifestyle Changes, Cholesterol Meds, Foods Heart Healthy Admission Data Admit Date/Time: 03/08/20 16:14 Attending Provider: David Escalona Admit Provider: Torin Lacy Primary Care Provider: Eduard Meek Other Providers: Torin Lacy ; Ronald Manning Other Interventions: Discharge Summary Assessment (RN) Last Done: 03/09/20 14:35 Supervising Physician Co-Signing Physician Notes I personally examined the patient and verified all seals points of history and exam, discussed case, and agree with decision making with Dr Garcia. eye still blurred, vision poor. no other new complaints. discussed dx, cause, plans etc in detail, she expresses good understanding vitals noted nad heent nc at mmm breathing unlabored no accessory muscles good effort skin no rashes no pallor or icterus. frequently squinting occassionally covering R eye. retinal artery occlusion -appearing to be vascular - atherosclerotic - given BP and cholesterol numbers (as well as normal ESR, no evidence of vasculitis on imaging; other hypercoag labs sent and pending) -- secondary risk reduction (statin, asa, ACEi, lifestyle change); close ophthalmology f/u but right now no signs of increased intraocular pressure to warrant diamox/etc. no other interventions able to be done given duration of occlusion prior to presentation. safe for home. close f/u. otherwise as above Resident Activity Tracking Resident Involvement: Resident Care Provided Care Provided: Adult Hospital Medicine
[2020-03-09] MEDS ORDERED: STROKE PATIENT DISCHARGE STA (14:26)
--- NOTE | 2020-03-09 14:27 | Billing Data ---
Date of Service March 09, 2020 Coding Level of Care Code D/C Day Management >30 mins
--- NOTE | 2020-03-09 15:08 | Pharmacy Report ---
Pharmacist Stroke Counseling - Date of Service March 09, 2020 - Scope: Pharmacy has been consulted to provide medication discharge counseling for this patient admitted with retinal artery occlusion as per the Pharmacist Discharge Counseling for Stroke Patients Protocol. - Medications on Discharge: Home Medications Medication Instructions Recorded Confirmed acetaminophen [Tylenol] 325 mg PO QID PRN 03/08/20 03/08/20 esomeprazole magnesium [Nexium] 40 mg PO HS 03/08/20 03/08/20 ibuprofen [Advil] 200 mg PO Q6H PRN 03/08/20 03/08/20 tizanidine 0 mg PO HS 03/08/20 03/08/20 New Rx's Medication Instructions Recorded aspirin 81 mg PO QAM #30 tab 03/09/20 atorvastatin 80 mg PO QPM #30 tab 03/09/20 lisinopril 10 mg PO QAM #30 tab 03/09/20 - Action: The above medications, specifically ones for stroke treatment/prophylaxis, have been reviewed in detail with the patient prior to discharge. This includes indication, common adverse reactions, drug interactions, and medication administration. Medication counseling has been employed using the teach-back method to ensure understanding. - Outcome: The patient have demonstrated understanding of the medications. Thank you for allowing pharmacy to be involved in the care of this patient. Please call [phone] with any additional questions
--- NOTE | 2020-03-09 15:56 | XCELERA ---
[id number] [id number]
[2020-03-09] MEDS ORDERED: ATORVASTATIN 40 MG TAB PO SCH (21:00)
[2020-03-16 15:34] LABS: Anti Cardiolipin Ab IgG <14 GPL; Anti Cardiolipin Ab IgM <12 MPL; Anti Nuclear Antibody Screen NEGATIVE (NEGATIVE); Anti-Cardiolipin Ab IgA <11 APL; Anti-Centromere Ab <1.0 NEG AI (<1.0 NEG); Anti-SS-A <1.0 NEG AI (<1.0 NEG); Anti-SS-B <1.0 NEG AI (<1.0 NEG); Anti-Thrombin III Activity 111 % activity (80-120); B2 Glycoprotein IgA <9 SAU (<=20); B2 Glycoprotein IgG <9 SGU (<=20); B2 Glycoprotein IgM <9 SMU (<=20); Chromatin Antibody <1.0 NEG AI (<1.0 NEG); Complement C3 148 mg/dL (83-193); DNA ds Crithidia NEGATIVE (NEGATIVE); Microsomal Ab 93 IU/mL (<9); PTT LA Screen 37 sec (<=40); Protein S Functional(Activity) 116 % (60-140); RNP Antibody <1.0 NEG AI (<1.0 NEG); Scleroderma Anti Scl-70 Ab <1.0 NEG AI (<1.0 NEG); Sm Antibody <1.0 NEG AI (<1.0 NEG)
== END 2020-03-09 16:09 | disposition home or self-care (01) | DRG 123 ==
LOC: ED 13:50 → SUATTDRO 16:14 → 2S 16:14